=== PATIENT | female | born 1975 | race Caucasian/White ===

== ENCOUNTER 2017-04-08 09:36 | Emergency (ER) | payer MEDICAID ==
[~2017-04-08] VITALS: Ht 157.5 cm; Wt 62.0 kg
[2017-04-08] MEDS ORDERED: morphine 4 MG/ML VIAL IV STA (10:09)
[2017-04-08] MEDS ORDERED: ONDANSETRON 4 MG INJ IV STA (10:09)
--- NOTE | 2017-04-08 10:29 | ERD ---
ER Documentation Chief Complaint Chief Complaint ruq pain rad into back and sometimes shoulder blade HPI This is a 41-year-old female who presents to the emergency department today complaining of intermittent abdominal pain that goes to her back for the past 2 weeks. States that it got worse this morning. States that she has not taken a medication for the pain. She is nauseated but denies vomiting, fevers or chills. ROS All systems reviewed and are negative except as per history of present illness. Medications Home Meds Active Scripts Acetaminophen* (Tylophen*) 500 Mg Capsule, 1 CAP PO Q6H Y for PAIN AND OR ELEVATED TEMP, #30 CAP Prov:DAWSON STOREY PA-C 04/08/17 Famotidine* (Pepcid*) 20 Mg Tablet, 20 MG PO BID for 10 Days, TAB Prov:DAWSON STOREY PA-C 04/08/17 Hydrocodone/Acetaminophen ([place] 5-325 Tablet) 1 Each Tablet, 1 TAB PO Q6H Y for PAIN, #12 TAB Prov:DAWSON STOREY PA-C 04/08/17 Physical Exam Vitals Vital Signs Date Time Temp Pulse Resp B/P Pulse Ox O2 Delivery O2 Flow Rate FiO2 04/08/17 14:26 72 20 129/71 98 Room Air 04/08/17 09:38 98.6 106 20 136/82 98 Physical Exam Const: NAD Head: Atraumatic Eyes: Normal Conjunctiva ENT: Normal External Ears, Nose and Mouth. Neck: Full range of motion..~ No meningismus. Resp: Clear to auscultation bilaterally Cardio: Regular rate and rhythm, no murmurs Abd: Soft, right upper quadrant abdominal pain non distended. Normal bowel sounds. No lower abdominal pain. No tenderness at McBurney's. Skin: No petechiae or rashes Back: No midline or flank tenderness Ext: No cyanosis, or edema Neur: Awake and alert Psych: Normal Mood and Affect Result Diagram: 04/08/17 1035 04/08/17 1035 Results 24 hrs Laboratory Tests Test 04/08/17 10:13 04/08/17 10:35 Urine Color COLORLESS Urine Clarity CLEAR Urine pH 8.0 Urine Specific Qulin 1.001 Urine Ketones NEGATIVEmg/dL Urine Nitrite NEGATIVEmg/dL Urine Bilirubin NEGATIVEmg/dL Urine Urobilinogen NEGATIVEmg/dL Urine Leukocyte Esterase NEGATIVELeu/ul Urine Microscopic RBC 1/HPF Urine Microscopic WBC 1/HPF Urine Bacteria FEW/HPF Urine Hemoglobin 2+mg/dL Urine Glucose NEGATIVEmg/dL Urine Total Protein NEGATIVEmg/dl White Blood Count 6.110^3/ul Red Blood Count 4.4510^6/ul Hemoglobin 13.5g/dl Hematocrit 40.3% Mean Corpuscular Volume 90.6fl Mean Corpuscular Hemoglobin 30.3pg Mean Corpuscular Hemoglobin Concent 33.5g/dl Red Cell Distribution Width 12.8% Platelet Count 33462^3/UL Mean Platelet Volume 9.2fl Neutrophils % 69.2% Lymphocytes % 23.1% Monocytes % 5.9% Eosinophils % 1.1% Basophils % 0.5% Nucleated Red Blood Cells % 0.0/100WBC Neutrophils # 4.210^3/ul Lymphocytes # 1.410^3/ul Monocytes # 0.410^3/ul Eosinophils # 0.110^3/ul Basophils # 0.010^3/ul Nucleated Red Blood Cells # 0.010^3/ul Sodium Level 144mmol/L Potassium Level 3.2mmol/L Chloride Level 105mmol/L Carbon Dioxide Level 27mmol/L Anion Gap 15 Blood Urea Nitrogen 8mg/dl Creatinine 0.54mg/dl Glucose Level 98mg/dl Calcium Level 9.0mg/dl Total Bilirubin 0.4mg/dl Direct Bilirubin 0.00mg/dl Indirect Bilirubin 0.4mg/dl Aspartate Amino Transf (AST/SGOT) 23IU/L Alanine Aminotransferase (ALT/SGPT) 27IU/L Alkaline Phosphatase 75IU/L Total Protein 8.4g/dl Albumin 5.0g/dl Globulin 3.40g/dl Albumin/Globulin Ratio 1.47 Lipase 159U/L Current Medications Medications (Trade) Dose Ordered Sig/Justen Route PRN Reason Start Time Stop Time Status Last Admin Dose Admin Morphine Sulfate (morphine) 4 mg ONCE STAT IV 04/08/17 10:09 04/08/17 10:11 DC 04/08/17 10:35 Ondansetron HCl (Zofran Inj) 4 mg ONCE STAT IV 04/08/17 10:09 04/08/17 10:11 DC 04/08/17 10:35 Acetaminophen/ Hydrocodone Bitart ([place] (5/325)) 1 tab ONCE ONCE PO 04/08/17 14:00 04/08/17 14:01 DC 04/08/17 14:07 Potassium Chloride (Klor-Con 20) 40 meq ONCE STAT PO 04/08/17 13:50 04/08/17 13:51 DC 04/08/17 14:08 DIAGNOSTIC IMAGING REPORT Patient: KRISTAL ARMAS : 1975 Age: 41 Sex: F MR #: [id number] [facility] #: [id number] DOS: 04/08/17 1200 Ordering MD: DAWSON STOREY PA-C Location: [facility] Room/Bed: PROCEDURE: CT scan of the abdomen and pelvis without IV contrast. CLINICAL INDICATION: Right-sided abdominal pain. TECHNIQUE: Thin section axial, coronal and sagittal images were performed through the abdomen and pelvis without contrast utilizing a Sorbent GreenT Archevos CT scanner. Radiation Dose: CTDI: 7 and DLP: 398 One or more of the following dose reduction techniques were used: - Automated exposure control. - Adjustment of the mA and/or kV according to patient size. Use of iterative reconstruction technique. COMPARISON: Chest x-ray 07/04/2016 06:18 a.m. FINDINGS: Soft tissues: Normal. Lungs and pleural spaces: Normal. Heart: Normal. No pericardial or pleural effusion is present. The liver, common bile duct and gallbladder: There are multiple benign cysts in the liver. The gallbladder and gallbladder wall are normal. No intrahepatic biliary ductal dilatation is identified. The liver measures 14.5 cm AP. Pancreas: Normal. Normal. The extrahepatic common bile duct is normal measuring 5.3 mm. Gastrointestinal: There is no evidence of a hiatal hernia. The stomach is incompletely distended. There is fecal material in the hepatic and splenic flexures, ascending and descending colon, transverse and sigmoid colon. The small bowel loops have a normal caliber. The vermiform appendix measures up to 7.8 mm. No appendicolith is identified. No appendiceal abscess is noted. Kidneys, bladder and adrenal glands : The adrenal glands are normal. A 1.3 cm benign cyst is noted in the upper middle third in the the ventral left kidney. No suspicious renal mass nephrolith or bladder stone is identified. The urinary bladder is normal. Spleen: Normal. Lymph nodes: No enlarged periportal, retroperitoneal, mesenteric or pelvic sidewall lymph nodes are identified. No enlarged inguinal lymph nodes are identified. Reproductive system and pelvis : Some free fluid is present in the cul-de-sac. The uterus is unremarkable. A 1 cm benign cyst is noted in the left ovary. The uterus is retroverted. Bony elements: No acute bony fracture or bone metastasis is identified. There are ventral osteophytes at L3-4 and L4-5. Vasculature: Normal. Additional findings: None IMPRESSION: 1. Findings suspicious but not diagnostic for acute appendicitis. Clinical correlation is needed. The vermiform appendix measures 7.8 mm. No appendicolith , periappendiceal fatty stranding or abscess is identified. Findings were phoned to and discussed with DARLEEN Hawkins. 2. There are benign hepatic and renal cysts as described. These require no follow-up. 3. Small amount of fluid is noted in the cul-de-sac. 4. Retroverted uterus. 5. 1 cm benign left ovarian cyst. 1.3 cm right ovarian cyst. 6. Osteoarthritis of the lumbar spine. RPTAT:AAJJ Physician Tao Date Time Electronically viewed and signed by Physician Tao on 04/08/2017 13:16 JM/ CC: DAWSON STOREY PA-C Patient: KRISTAL ARMAS : 1975 Age: 41 Sex: F MR #: [id number] DOS: 04/08/17 1009 Ordering MD: DAWSON STOREY PA-C Location: [facility] Room/Bed: PROCEDURE: US Abdomen. CLINICAL INDICATION: abdominal pain TECHNIQUE: Multiple real-time images were acquired of the patient's right upper quadrant abdomen and retroperitoneum utilizing a high resolution transducer. COMPARISON: None FINDINGS: The liver demonstrates normal echogenicity. The liver is normal in size and no focal solid lesions are seen. The liver measures 12.9 cm in length. The portal vein is patent with normal direction of flow. No intrahepatic biliary dilatation is seen. There are 2 simple cysts in the liver, the largest measuring 2.8 cm. No gallstones are identified within the gallbladder. There is no pericholecystic fluid or gallbladder wall thickening. The common bile duct measures 6 mm in maximal dimension. The visualized portions of the pancreas are unremarkable. The tail of the pancreas is not seen. No free fluid is identified. The right kidney is normal in size, and demonstrate normal echogenicity and cortical thickness. The right kidney measures 9.2 cm in long dimension. There is no evidence of hydronephrosis. There are no kidney stones. RPTAT: AA IMPRESSION: No evidence of gallstones. Two simple cysts in the liver. .Humberto Sanders MD, MD Date Time Electronically viewed and signed by .Humberto Sanders MD, MD on 04/08/2017 11: 43 .S/ CC: DAWSON STOREY PA-C DIAGNOSTIC IMAGING REPORT Patient: KRISTAL ARMAS : 1975 Age: 41 Sex: F MR #: [id number] DOS: 04/08/17 0000 Ordering MD: DAWSON STOREY PA-C Location: [facility] Room/Bed: PROCEDURE: XR Chest. CLINICAL INDICATION: Right-sided scapular pain. TECHNIQUE: Single frontal view of the chest was obtained. COMPARISON: None FINDINGS: The soft tissues are normal. The bony elements are normal. The heart, cardiomediastinal silhouette and hilar structures are normal. The pulmonary vasculature is normal. There is a left-sided aorta. Lungs are mildly hyperinflated with flattening of the diaphragms. The costophrenic angles are normal. IMPRESSION: 1. Mild pulmonary hyperinflation with no evidence of active cardiopulmonary disease. 2. The right scapula is unremarkable as visualized. RPTAT:AAJJ Physician Tao Date Time Electronically viewed and signed by Layo Wright Physician on 04/08/2017 12:40 KANDICE/ CC: DAWSON STOREY PA-C Procedures/MDM This is a 41-year-old female who presents the emergency department today complaining of intermittent abdominal pain for the past 2 weeks and that is worse today. Patient indicated that the pain radiates into her back and sometimes her shoulder blade. Patient had a significant amount of tenderness in her right upper quadrant on physical exam and therefore I did obtain laboratory work as well as imaging and an EKG Laboratory workup shows no elevated white blood cell count. She is not anemic. Platelets are within normal limits. Potassium is mildly decreased otherwise electrolytes are within normal limits. Glucose is within normal limits. Liver enzymes are within normal limits. Lipase is within normal limits. UA is negative for infection. Urine test is negative RUQ US shows no evidence of gallstones. There is no gallbladder wall thickening and no pericholecystic fluid.. There are 2 simple cysts in the liver. Patient reported only mild improvement in symptoms and therefore a did obtain a chest x-ray Chest x-ray shows mild pulmonary hyperinflation with no evidence of acute cardiopulmonary disease. CT abdomen pelvis shows findings suspicious but not diagnostic for acute appendicitis. The veriform appendix measures 7.8 mm. There is no appendicolith periappendiceal fat stranding or abscess identified. There is benign hepatic and renal cysts as described. There is a small amount of fluid noted in the cul-de-sac. There is a retroverted uterus and a 1 cm benign left ovarian cyst and a 1.3 cm right ovarian cyst. She has osteoarthritis of the lumbar spine. EKG read and interpreted by Dr. Escudero rate [address] elevation. No QT prolongation. Normal sinus rhythm. Low suspicion for acute [place], PE, pericarditis, pleural effusion Patient was given morphine, Zofran, KDUR here in the emergency department. Patient indicated her pain was starting to return prior to discharge and she was therefore given a [place]. I did multiple repeat serial abdominal exams as did Dr. Escudero and patient has no lower abdominal pain. She has no tenderness at McBurney's. I have low suspicion for acute surgical abdomen at this time. Patient was mildly tachycardic at intake however her oxygen saturation is 98%. She is not short of breath. I do not feel that this is pulmonary related and I have low suspicion for PE, abscess, pleural effusion or pneumothorax. Her chest x-ray was negative. I did discuss the imaging findings with Dr. Roblero, the surgeon information systems specialist , and he reviewed the CT here in the emergency department and he does not feel that she requires admission at this time given the length and duration of symptoms. She has no elevated white blood cell count, no fevers or vomiting. He recommended that she follow-up with her primary care doctor for GI specialist referral Patient has no evidence of rash. I have low suspicion for shingles Patient has upper abdominal pain of uncertain etiology. This may be related to gastritis. I have explained to the patient. She was instructed that she may return in the next 12 hours for any persistent symptoms, worsening of symptoms patient was given a prescription for short course of [place] Pepcid for home. At this time the patient is stable for discharge and outpatient management. Patient should follow up with their PCP in the next 1-2 days. They may return to the emergency department sooner for any persistent or worsening of symptoms. Patient understood and agreed with the plan. Departure Diagnosis: Primary Impression: Abdominal pain Abdominal location: right upper quadrant Qualified Code: R10.11 - Right upper quadrant abdominal pain Condition: Fair DAWSON STOREY PA-C Apr 08, 2017 10:29
--- NOTE | 2017-04-08 10:29 | ERD ---
ER Documentation Chief Complaint Chief Complaint ruq pain rad into back and sometimes shoulder blade HPI This is a 41-year-old female who presents to the emergency department today complaining of intermittent abdominal pain that goes to her back for the past 2 weeks. States that it got worse this morning. States that she has not taken a medication for the pain. She is nauseated but denies vomiting, fevers or chills. ROS All systems reviewed and are negative except as per history of present illness. Medications Home Meds Active Scripts Acetaminophen* (Tylophen*) 500 Mg Capsule, 1 CAP PO Q6H Y for PAIN AND OR ELEVATED TEMP, #30 CAP Prov:DAWSON STOREY PA-C 04/08/17 Famotidine* (Pepcid*) 20 Mg Tablet, 20 MG PO BID for 10 Days, TAB Prov:DAWSON STOREY PA-C 04/08/17 Hydrocodone/Acetaminophen (Flat Top 5-325 Tablet) 1 Each Tablet, 1 TAB PO Q6H Y for PAIN, #12 TAB Prov:DAWSON STOREY PA-C 04/08/17 Physical Exam Vitals Vital Signs Date Time Temp Pulse Resp B/P Pulse Ox O2 Delivery O2 Flow Rate FiO2 04/08/17 14:26 72 20 129/71 98 Room Air 04/08/17 09:38 98.6 106 20 136/82 98 Physical Exam Const: NAD Head: Atraumatic Eyes: Normal Conjunctiva ENT: Normal External Ears, Nose and Mouth. Neck: Full range of motion..~ No meningismus. Resp: Clear to auscultation bilaterally Cardio: Regular rate and rhythm, no murmurs Abd: Soft, right upper quadrant abdominal pain non distended. Normal bowel sounds. No lower abdominal pain. No tenderness at McBurney's. Skin: No petechiae or rashes Back: No midline or flank tenderness Ext: No cyanosis, or edema Neur: Awake and alert Psych: Normal Mood and Affect Result Diagram: 04/08/17 1035 04/08/17 1035 Results 24 hrs Laboratory Tests Test 04/08/17 10:13 04/08/17 10:35 Urine Color COLORLESS Urine Clarity CLEAR Urine pH 8.0 Urine Specific [place] 1.001 Urine Ketones NEGATIVEmg/dL Urine Nitrite NEGATIVEmg/dL Urine Bilirubin NEGATIVEmg/dL Urine Urobilinogen NEGATIVEmg/dL Urine Leukocyte Esterase NEGATIVELeu/ul Urine Microscopic RBC 1/HPF Urine Microscopic WBC 1/HPF Urine Bacteria FEW/HPF Urine Hemoglobin 2+mg/dL Urine Glucose NEGATIVEmg/dL Urine Total Protein NEGATIVEmg/dl White Blood Count 6.110^3/ul Red Blood Count 4.4510^6/ul Hemoglobin 13.5g/dl Hematocrit 40.3% Mean Corpuscular Volume 90.6fl Mean Corpuscular Hemoglobin 30.3pg Mean Corpuscular Hemoglobin Concent 33.5g/dl Red Cell Distribution Width 12.8% Platelet Count 09892^3/UL Mean Platelet Volume 9.2fl Neutrophils % 69.2% Lymphocytes % 23.1% Monocytes % 5.9% Eosinophils % 1.1% Basophils % 0.5% Nucleated Red Blood Cells % 0.0/100WBC Neutrophils # 4.210^3/ul Lymphocytes # 1.410^3/ul Monocytes # 0.410^3/ul Eosinophils # 0.110^3/ul Basophils # 0.010^3/ul Nucleated Red Blood Cells # 0.010^3/ul Sodium Level 144mmol/L Potassium Level 3.2mmol/L Chloride Level 105mmol/L Carbon Dioxide Level 27mmol/L Anion Gap 15 Blood Urea Nitrogen 8mg/dl Creatinine 0.54mg/dl Glucose Level 98mg/dl Calcium Level 9.0mg/dl Total Bilirubin 0.4mg/dl Direct Bilirubin 0.00mg/dl Indirect Bilirubin 0.4mg/dl Aspartate Amino Transf (AST/SGOT) 23IU/L Alanine Aminotransferase (ALT/SGPT) 27IU/L Alkaline Phosphatase 75IU/L Total Protein 8.4g/dl Albumin 5.0g/dl Globulin 3.40g/dl Albumin/Globulin Ratio 1.47 Lipase 159U/L Current Medications Medications (Trade) Dose Ordered Sig/Justen Route PRN Reason Start Time Stop Time Status Last Admin Dose Admin Morphine Sulfate (morphine) 4 mg ONCE STAT IV 04/08/17 10:09 04/08/17 10:11 DC 04/08/17 10:35 Ondansetron HCl (Zofran Inj) 4 mg ONCE STAT IV 04/08/17 10:09 04/08/17 10:11 DC 04/08/17 10:35 Acetaminophen/ Hydrocodone Bitart (Flat Top (5/325)) 1 tab ONCE ONCE PO 04/08/17 14:00 04/08/17 14:01 DC 04/08/17 14:07 Potassium Chloride (Klor-Con 20) 40 meq ONCE STAT PO 04/08/17 13:50 04/08/17 13:51 DC 04/08/17 14:08 DIAGNOSTIC IMAGING REPORT Patient: KRISTAL ARMAS : 1975 Age: 41 Sex: F MR #: [id number] [facility] #: [id number] DOS: 04/08/17 1200 Ordering MD: DAWSON STOREY PA-C Location: [facility] Room/Bed: PROCEDURE: CT scan of the abdomen and pelvis without IV contrast. CLINICAL INDICATION: Right-sided abdominal pain. TECHNIQUE: Thin section axial, coronal and sagittal images were performed through the abdomen and pelvis without contrast utilizing a [employer] CT scanner. Radiation Dose: CTDI: 7 and DLP: 398 One or more of the following dose reduction techniques were used: - Automated exposure control. - Adjustment of the mA and/or kV according to patient size. Use of iterative reconstruction technique. COMPARISON: Chest x-ray 07/04/2016 06:18 a.m. FINDINGS: Soft tissues: Normal. Lungs and pleural spaces: Normal. Heart: Normal. No pericardial or pleural effusion is present. The liver, common bile duct and gallbladder: There are multiple benign cysts in the liver. The gallbladder and gallbladder wall are normal. No intrahepatic biliary ductal dilatation is identified. The liver measures 14.5 cm AP. Pancreas: Normal. Normal. The extrahepatic common bile duct is normal measuring 5.3 mm. Gastrointestinal: There is no evidence of a hiatal hernia. The stomach is incompletely distended. There is fecal material in the hepatic and splenic flexures, ascending and descending colon, transverse and sigmoid colon. The small bowel loops have a normal caliber. The vermiform appendix measures up to 7.8 mm. No appendicolith is identified. No appendiceal abscess is noted. Kidneys, bladder and adrenal glands : The adrenal glands are normal. A 1.3 cm benign cyst is noted in the upper middle third in the the ventral left kidney. No suspicious renal mass nephrolith or bladder stone is identified. The urinary bladder is normal. Spleen: Normal. Lymph nodes: No enlarged periportal, retroperitoneal, mesenteric or pelvic sidewall lymph nodes are identified. No enlarged inguinal lymph nodes are identified. Reproductive system and pelvis : Some free fluid is present in the cul-de-sac. The uterus is unremarkable. A 1 cm benign cyst is noted in the left ovary. The uterus is retroverted. Bony elements: No acute bony fracture or bone metastasis is identified. There are ventral osteophytes at L3-4 and L4-5. Vasculature: Normal. Additional findings: None IMPRESSION: 1. Findings suspicious but not diagnostic for acute appendicitis. Clinical correlation is needed. The vermiform appendix measures 7.8 mm. No appendicolith , periappendiceal fatty stranding or abscess is identified. Findings were phoned to and discussed with DARLEEN Hawkins. 2. There are benign hepatic and renal cysts as described. These require no follow-up. 3. Small amount of fluid is noted in the cul-de-sac. 4. Retroverted uterus. 5. 1 cm benign left ovarian cyst. 1.3 cm right ovarian cyst. 6. Osteoarthritis of the lumbar spine. RPTAT:AAJJ Physician Tao Date Time Electronically viewed and signed by Physician Tao on 04/08/2017 13:16 JM/ CC: DAWSON STOREY PA-C Patient: KRISTAL ARMAS : 1975 Age: 41 Sex: F MR #: [id number] DOS: 04/08/17 1009 Ordering MD: DAWSON STOREY PA-C Location: [facility] Room/Bed: PROCEDURE: US Abdomen. CLINICAL INDICATION: abdominal pain TECHNIQUE: Multiple real-time images were acquired of the patient's right upper quadrant abdomen and retroperitoneum utilizing a high resolution transducer. COMPARISON: None FINDINGS: The liver demonstrates normal echogenicity. The liver is normal in size and no focal solid lesions are seen. The liver measures 12.9 cm in length. The portal vein is patent with normal direction of flow. No intrahepatic biliary dilatation is seen. There are 2 simple cysts in the liver, the largest measuring 2.8 cm. No gallstones are identified within the gallbladder. There is no pericholecystic fluid or gallbladder wall thickening. The common bile duct measures 6 mm in maximal dimension. The visualized portions of the pancreas are unremarkable. The tail of the pancreas is not seen. No free fluid is identified. The right kidney is normal in size, and demonstrate normal echogenicity and cortical thickness. The right kidney measures 9.2 cm in long dimension. There is no evidence of hydronephrosis. There are no kidney stones. RPTAT: AA IMPRESSION: No evidence of gallstones. Two simple cysts in the liver. .Humberto Sanders MD, MD Date Time Electronically viewed and signed by .Humberto Sanders MD, MD on 04/08/2017 11: 43 .S/ CC: DAWSON STOREY PA-C DIAGNOSTIC IMAGING REPORT Patient: KRISTAL ARMAS : 1975 Age: 41 Sex: F MR #: [id number] DOS: 04/08/17 0000 Ordering MD: DAWSON STOREY PA-C Location: [facility] Room/Bed: PROCEDURE: XR Chest. CLINICAL INDICATION: Right-sided scapular pain. TECHNIQUE: Single frontal view of the chest was obtained. COMPARISON: None FINDINGS: The soft tissues are normal. The bony elements are normal. The heart, cardiomediastinal silhouette and hilar structures are normal. The pulmonary vasculature is normal. There is a left-sided aorta. Lungs are mildly hyperinflated with flattening of the diaphragms. The costophrenic angles are normal. IMPRESSION: 1. Mild pulmonary hyperinflation with no evidence of active cardiopulmonary disease. 2. The right scapula is unremarkable as visualized. RPTAT:AAJJ Physician Tao Date Time Electronically viewed and signed by Layo Wright Physician on 04/08/2017 12:40 KANDICE/ CC: DAWSON STOREY PA-C Procedures/MDM This is a 41-year-old female who presents the emergency department today complaining of intermittent abdominal pain for the past 2 weeks and that is worse today. Patient indicated that the pain radiates into her back and sometimes her shoulder blade. Patient had a significant amount of tenderness in her right upper quadrant on physical exam and therefore I did obtain laboratory work as well as imaging and an EKG Laboratory workup shows no elevated white blood cell count. She is not anemic. Platelets are within normal limits. Potassium is mildly decreased otherwise electrolytes are within normal limits. Glucose is within normal limits. Liver enzymes are within normal limits. Lipase is within normal limits. UA is negative for infection. Urine test is negative RUQ US shows no evidence of gallstones. There is no gallbladder wall thickening and no pericholecystic fluid.. There are 2 simple cysts in the liver. Patient reported only mild improvement in symptoms and therefore a did obtain a chest x-ray Chest x-ray shows mild pulmonary hyperinflation with no evidence of acute cardiopulmonary disease. CT abdomen pelvis shows findings suspicious but not diagnostic for acute appendicitis. The veriform appendix measures 7.8 mm. There is no appendicolith periappendiceal fat stranding or abscess identified. There is benign hepatic and renal cysts as described. There is a small amount of fluid noted in the cul-de-sac. There is a retroverted uterus and a 1 cm benign left ovarian cyst and a 1.3 cm right ovarian cyst. She has osteoarthritis of the lumbar spine. EKG read and interpreted by Dr. Escudero rate [address] elevation. No QT prolongation. Normal sinus rhythm. Low suspicion for acute PR, PE, pericarditis, pleural effusion Patient was given morphine, Zofran, KDUR here in the emergency department. Patient indicated her pain was starting to return prior to discharge and she was therefore given a Flat Top. I did multiple repeat serial abdominal exams as did Dr. Escudero and patient has no lower abdominal pain. She has no tenderness at McBurney's. I have low suspicion for acute surgical abdomen at this time. Patient was mildly tachycardic at intake however her oxygen saturation is 98%. She is not short of breath. I do not feel that this is pulmonary related and I have low suspicion for PE, abscess, pleural effusion or pneumothorax. Her chest x-ray was negative. I did discuss the imaging findings with Dr. Roblero, the surgeon vocational guidance counselor , and he reviewed the CT here in the emergency department and he does not feel that she requires admission at this time given the length and duration of symptoms. She has no elevated white blood cell count, no fevers or vomiting. He recommended that she follow-up with her primary care doctor for GI specialist referral Patient has no evidence of rash. I have low suspicion for shingles Patient has upper abdominal pain of uncertain etiology. This may be related to gastritis. I have explained to the patient. She was instructed that she may return in the next 12 hours for any persistent symptoms, worsening of symptoms patient was given a prescription for short course of Flat Top Pepcid for home. At this time the patient is stable for discharge and outpatient management. Patient should follow up with their PCP in the next 1-2 days. They may return to the emergency department sooner for any persistent or worsening of symptoms. Patient understood and agreed with the plan. Departure Diagnosis: Primary Impression: Abdominal pain Abdominal location: right upper quadrant Qualified Code: R10.11 - Right upper quadrant abdominal pain Condition: Fair DAWSON STOREY PA-C Apr 08, 2017 10:29
[2017-04-08 10:38] VITALS: Ht 157.5 cm; Wt 62.0 kg
--- NOTE | 2017-04-08 11:43 | RADRPT ---
PROCEDURE: US Abdomen. CLINICAL INDICATION: abdominal pain TECHNIQUE: Multiple real-time images were acquired of the patient's right upper quadrant abdomen a nd retroperitoneum utilizing a high resolution transducer. COMPARISON: None FINDINGS: The liver demonstrates normal echogenicity. The liver is normal in size and no focal solid lesions are seen. The liver measures 12.9 cm in length. The portal vein is patent with normal direction of f low. No intrahepatic biliary dilatation is seen. There are 2 simple cysts in the liver, the largest measuring 2.8 cm. No gallstones are identified within the gallbladder. There is no pericholecystic fluid or gallbladd er wall thickening. The common bile duct measures 6 mm in maximal dimension. The visualized portions of the pancreas are unremarkable. The tail of the pancreas is not seen. No free fluid is identified. The right kidney is normal in size, and demonstrate normal echogenicity and cortical thickness. The right kidney measures 9.2 cm in long dimension. There is no evidence of hydronephrosis. There are no kidney stones. RPTAT: AA IMPRESSION: No evidence of gallstones. Two simple cysts in the liver. .Humberto Sanders MD, Date Time Electronically viewed and signed by .Humberto Sanders MD, on 04/08/2017 11:43 .S/
--- NOTE | 2017-04-08 12:40 | RADRPT ---
PROCEDURE: XR Chest. CLINICAL INDICATION: Right-sided scapular pain. TECHNIQUE: Single frontal view of the chest was obtained. COMPARISON: None FINDINGS: The soft tissues are normal. The bony elements are normal. The heart, cardiomediastinal silhouette and hilar structures are normal. The pulmonary vasculature is normal. There is a left-sided aorta. Lungs are mildly hyperinflated with flattening of the diaphragms. The costophrenic angles are norm al. IMPRESSION: 1. Mild pulmonary hyperinflation with no evidence of active cardiopulmonary disease. 2. The right scapula is unremarkable as visualized. RPTAT:AAJJ Physician Tao Date Time Electronically viewed and signed by Physician Tao on 04/08/2017 12:40 /
--- NOTE | 2017-04-08 13:17 | RADRPT ---
PROCEDURE: CT scan of the abdomen and pelvis without IV contrast. CLINICAL INDICATION: Right-sided abdominal pain. TECHNIQUE: Thin section axial, coronal and sagittal images were performed through the abdomen and pelvis without contrast utilizing a [employer] CT scanner. Radiation Dose: CTDI: 7 and DLP: 398 One or more of the following dose reduction techniques were used: - Automated exposure control. - Adjustment of the mA and/or kV according to patient size. Use of iterative reconstruction technique. COMPARISON: Chest x-ray 07/04/2016 06:18 a.m. FINDINGS: Soft tissues: Normal. Lungs and pleural spaces: Normal. Heart: Normal. No pericardial or pleural effusion is present. The liver, common bile duct and gallbladder: There are multiple benign cysts in the liver. The gallb ladder and gallbladder wall are normal. No intrahepatic biliary ductal dilatation is identified. The liver measures 14.5 cm AP. Pancreas: Normal. Normal. The extrahepatic common bile duct is normal measuring 5.3 mm. Gastrointestinal: There is no evidence of a hiatal hernia. The stomach is incompletely distended. Th ere is fecal material in the hepatic and splenic flexures, ascending and descending colon, transvers e and sigmoid colon. The small bowel loops have a normal caliber. The vermiform appendix measures up to 7.8 mm. No appendicolith is identified. No appendiceal abscess is noted. Kidneys, bladder and adrenal glands : The adrenal glands are normal. A 1.3 cm benign cyst is noted i n the upper middle third in the the ventral left kidney. No suspicious renal mass nephrolith or blad marquise stone is identified. The urinary bladder is normal. Spleen: Normal. Lymph nodes: No enlarged periportal, retroperitoneal, mesenteric or pelvic sidewall lymph nodes are identified. No enlarged inguinal lymph nodes are identified. Reproductive system and pelvis : Some free fluid is present in the cul-de-sac. The uterus is unremar kable. A 1 cm benign cyst is noted in the left ovary. The uterus is retroverted. Bony elements: No acute bony fracture or bone metastasis is identified. There are ventral osteophyte s at L3-4 and L4-5. Vasculature: Normal. Additional findings: None IMPRESSION: 1. Findings suspicious but not diagnostic for acute appendicitis. Clinical correlation is needed. T he vermiform appendix measures 7.8 mm. No appendicolith, periappendiceal fatty stranding or abscess is identified. Findings were phoned to and discussed with DARLEEN Hawkins. 2. There are benign hepatic and renal cysts as described. These require no follow-up. 3. Small amount of fluid is noted in the cul-de-sac. 4. Retroverted uterus. 5. 1 cm benign left ovarian cyst. 1.3 cm right ovarian cyst. 6. Osteoarthritis of the lumbar spine. RPTAT:AAJJ Physician Tao Date Time Electronically viewed and signed by Physician Tao on 04/08/2017 13:16 JM/
[2017-04-08] MEDS ORDERED: POTASSIUM CHLORIDE (SR) 20 MEQ TAB PO STA (13:50)
[2017-04-08] MEDS ORDERED: HYDROCODONE/APAP (5/325) TAB PO ONE (14:00)
[2017-04-08] MEDS ORDERED: HYDR-906 PO (14:13)
[2017-04-08] MEDS ORDERED: FAMO-96 PO (14:14)
[2017-04-08] MEDS ORDERED: ACET500C5 PO (14:14)
[2017-04-08 14:26] VITALS: BP 129/71; PULSE 72; RESP 20
--- NOTE | 2017-04-10 15:28 | EN ---
Date/Time of Note Date/Time of Note DATE: 04/10/17 TIME: 15:27 ER Progress Note I placed a call to the patient to follow-up to see how she was doing. A message was left with the patient and patient was instructed to return to the emergency department for any persistent or worsening of symptoms or she may follow-up with her primary care doctor. DAWSON STOREY PA-C Apr 10, 2017 15:28
== END 2017-04-08 14:27 | disposition home or self-care (01) ==
LOC: FTE 09:36
DX: R10.11 Right upper quadrant pain (principal); R11.0 Nausea
CPT/HCPCS: 71010; 74176; 76705; 80053; 81001; 83690; 85025; 93005; 96374; 96375; J2270; J2405; Z7502; Z7610

== ENCOUNTER 2018-09-23 15:44 | Emergency (ER) | payer MEDICAID, OTHER ==
[~2018-09-23] VITALS: Ht 157.5 cm; Wt 58.7 kg
[~2018-09-23 15:44] MED LIST: ACET500C5 PO; FAMO-96 PO; HYDR-4011 PO
[2018-09-23 15:49] VITALS: BP 155/87; PULSE 101; RESP 15; Ht 157.5 cm; Wt 58.7 kg
[2018-09-23] MEDS ORDERED: IBUP-1561 PO (19:02)
[2018-09-23] MEDS ORDERED: CEPH-443 PO (19:02)
--- NOTE | 2018-09-28 00:25 | ERD ---
ER Documentation Chief Complaint Chief Complaint laceration on left index of left hand while cutting mear around 1530 HPI 42 yo female presenting with complaints of laceration to her L index finger which occurred accidentally just prior to arrival with an exacto knife. Patient reports associated pain which is moderate in severity and constant. She states her tetanus is UTD. She denies any distal numbness or tingling or other symptoms or complaints at this time. ROS All systems reviewed and are negative except as per history of present illness. Medications Home Meds Active Scripts Ibuprofen* (Motrin*) 400 Mg Tab, 400 MG PO Q6, #30 TAB Prov:ÁLVARO HAMILTON PA-C 09/23/18 Cephalexin* (Keflex*) 500 Mg Capsule, 500 MG PO TID for 5 Days, CAP Prov:ÁLVARO HAMILTON PA-C 09/23/18 Acetaminophen* (Tylophen*) 500 Mg Capsule, 1 CAP PO Q6H PRN for PAIN AND OR ELEVATED TEMP, #30 CAP Prov:DAWSON STOREY PA-C 04/08/17 Famotidine* (Pepcid*) 20 Mg Tablet, 20 MG PO BID for 10 Days, TAB Prov:DAWSON STOREY PA-C 04/08/17 Hydrocodone/Acetaminophen ([place] 5-325 Tablet) 1 Each Tablet, 1 TAB PO Q6H PRN for PAIN, #12 TAB Prov:DAWSON STOREY PA-C 04/08/17 Allergies Allergies: Coded Allergies: sesame seed (Verified Allergy, Unknown, 09/23/18) PMhx/Soc History of Surgery: No Anesthesia Reaction: No Hx Neurological Disorder: No Hx Respiratory Disorders: No Hx Cardiac Disorders: No Hx Psychiatric Problems: No Hx Miscellaneous Medical Probl: No Hx Alcohol Use: Yes (OCCAS) Hx Substance Use: No Hx Tobacco Use: No Smoking Status: Never smoker FmHx Family History: No diabetes Physical Exam Physical Exam Const: No acute distress Head: Atraumatic Eyes: Normal Conjunctiva ENT: Normal External Ears, Nose and Mouth. Neck: Full range of motion. No meningismus. Resp: No respiratory distress. Cardio: No respiratory distress. Ext: Approximate 1 cm superficial laceration noted to anterior L index finger with no active bleeding. NVID. Neur: Awake and alert Psych: Normal Mood and Affect Procedures/MDM 42 yo female presenting with complaints of laceration to L index finger. Full risks, benefits, alternatives explained to patient and she gave verbal consent for laceration repair with dermabond. Laceration repair with dermabond by me: location: anterior L index finger length: 1 cm anesthesia: none patient tolerated procedure well without complication. NVID. No evidence of tendon or ligamental involvement. Scar minimization instructions were given. The patient was stable for discharge and further outpatient follow up. No evidence of life-threatening pathology at time of discharge. Pt/family in agreement with discharge plan/diagnosis. Pt/family advised to return immediately with any new or worsening symptoms. Follow-up with primary care physician within the next 1-2 days. Departure Diagnosis: Primary Impression: Laceration of left index finger Encounter type: initial encounter Damage to nail status: without damage Foreign body presence: without foreign body Qualified Codes: S61.211A - Laceration without foreign body of left index finger without damage to nail, initial encounter Condition: Fair Patient Instructions: Laceration, Hand Referrals: [facility] YOU HAVE RECEIVED A MEDICAL SCREENING EXAM AND THE RESULTS INDICATE THAT YOU DO NOT HAVE A CONDITION THAT REQUIRES URGENT TREATMENT IN THE EMERGENCY DEPARTMENT. FURTHER EVALUATION AND TREATMENT OF YOUR CONDITION CAN WAIT UNTIL YOU ARE SEEN IN YOUR DOCTORS OFFICE WITHIN THE NEXT 1-2 DAYS. IT IS YOUR RESPONSIBILITY TO MAKE AN APPOINTMENT FOR FOLOW-UP CARE. IF YOU HAVE A PRIMARY DOCTOR --you should call your primary doctor and schedule an appointment IF YOU DO NOT HAVE A PRIMARY DOCTOR YOU CAN CALL OUR PHYSICIAN REFERRAL HOTLINE AT IF YOU CAN NOT AFFORD TO SEE A PHYSICIAN YOU CAN CHOSE FROM THE FOLLOWING [facility] [address] [facility]. [facility] [address] [facility] [address] [facility] [address] [facility] [address] [facility]. [facility]. [address] Additional Instructions: Call your primary care doctor TOMORROW for an appointment during the next 1-2 days.See the doctor sooner or return here if your condition worsens before your appointment time. ÁLVARO HAMILTON PA-C Sep 28, 2018 00:24
== END 2018-09-23 19:27 | disposition home or self-care (01) ==
LOC: FTE 15:44
DX: S61.211A Laceration without foreign body of left index finger without damage to nail, initial encounter (principal); W26.0XXA Contact with knife, initial encounter; Y92.9 Unspecified place or not applicable